=== PATIENT | female | born 1965 | race Two or more races ===

== ENCOUNTER → 2018-05-07 | Outpatient (REF) | payer OTHER | LOC: M LAB REF 17:00 | DX: E03.9 Hypothyroidism, unspecified (principal) | CPT/HCPCS: 84443 ==

== ENCOUNTER → 2018-06-11 | Outpatient (CLI) | payer OTHER | LOC: M RAD 11:47 | DX: R92.8 Other abnormal and inconclusive findings on diagnostic imaging of breast (principal) | CPT/HCPCS: 77066 ==

== ENCOUNTER → 2019-03-15 | Outpatient (REF) | payer OTHER ==
[2019-03-15 18:26] LABS: BASO % 0.8 % (0.0-1.0); EOS # 0.1 10^3/uL (0.0-0.50); EOS % 2.2 % (0.0-3.0); HEMOGLOBIN 13.9 g/dl (12.0-15.5); LYMPH # 1.9 10^3/uL (1.5-4.5); LYMPH % 38.6 % (24.0-44.0); MEAN CORPUSCULAR HGB CONC 33.1 g/dl (32.0-36.5); MEAN CORPUSCULAR VOLUME 93.8 fl (80.0-96.0); MONO # 0.2 10^3/uL (0.0-0.8); MONO % 4.6 % (0.0-5.0); NEUTROPHILS # 2.7 10^3/uL (1.8-7.7); NEUTROPHILS % 53.6 % (36.0-66.0); PLATELET COUNT, AUTOMATED 180 10^3/uL (150-450); RED BLOOD COUNT 4.48 10^6/uL (4.00-5.40)
[2019-03-15 18:43] LABS: ALBUMIN 3.8 GM/DL (3.2-5.2); ALT/SGPT 16 U/L (12-78); BILIRUBIN,TOTAL 0.3 MG/DL (0.2-1.0); BLOOD UREA NITROGEN 16 MG/DL (7-18); CALCIUM LEVEL 8.6 MG/DL (8.5-10.1); CARBON DIOXIDE LEVEL 32 MEQ/L (21-32); CHLORIDE LEVEL 110 MEQ/L (98-107); CHOLESTEROL LEVEL 177 MG/DL (<200); CREATININE FOR GFR 0.71 MG/DL (0.55-1.30); FREE T4 0.91 NG/DL (0.76-1.46); GLOMERULAR FILTRATION RATE > 60.0 (>51); GLUCOSE, FASTING 86 MG/DL (70-100); HDL CHOLESTEROL 56 MG/DL (>40); LDL CHOLESTEROL 105 MG/DL (<100); NON-HDL-C 121 MG/DL; POTASSIUM SERUM 4.1 MEQ/L (3.5-5.1); SODIUM LEVEL 144 MEQ/L (136-145); TOTAL PROTEIN 7.1 GM/DL (6.4-8.2); TRIGLYCERIDES LEVEL 81 MG/DL (<150)
[2019-03-15 18:46] LABS: APPEARANCE, URINE CLEAR (CLEAR); BACTERIA, URINE AUTO 1+ (NEGATIVE); BILIRUBIN, URINE AUTO NEGATIVE (NEGATIVE); BLOOD, URINE BLOOD 3+ (NEGATIVE); COLOR, URINE YELLOW (YELLOW); GLUCOSE, URINE (UA) AUTO NEGATIVE (NEGATIVE); KETONE, URINE AUTO NEGATIVE (NEGATIVE); LEUKOCYTE ESTERASE, URINE AUTO 1+ (NEGATIVE); MUCUS, URINE SMALL (NEGATIVE); NITRITE, URINE AUTO NEGATIVE (NEGATIVE); PROTEIN, URINE AUTO NEGATIVE (NEGATIVE); RBC, URINE AUTO 2 /HPF (0-3); SPECIFIC GRAVITY URINE AUTO 1.011 (1.002-1.035); SQUAMOUS EPITHELIAL CELL UR AU 4 /HPF (0-6); UROBILINOGEN, URINE AUTO 0.2 mg/dL (0.0-2.0); WBC, URINE AUTO 27 /HPF (0-3)
[2019-03-15 18:52] LABS: HEMOGLOBIN A1c 5.2 %
[2019-03-19 00:06] LABS: Lyme Disease IgG/IgM Antibodie <0.91 ISR (0.00-0.90); Lyme Disease IgM Ab Quantitati <0.80 index (0.00-0.79)
== END ==
LOC: M LAB REF 16:45
PROVIDERS: ATTEND Family Medicine
DX: Z13.228 Encounter for screening for other metabolic disorders (principal)

== ENCOUNTER → 2019-04-10 | Outpatient (CLI) | payer OTHER ==
[~2019-04-10] MED LIST: PROHANCE 279.3MG/ML 15ML VIAL (A9576) As Ordered ONE
--- NOTE | 2019-04-10 12:31 | REP ---
MRI BILATERAL BREASTS WITH AND WITHOUT CONTRAST: No family history of breast cancer. Possible nodule right breast mammogram 05/31/2018. TECHNIQUE: Multiple sequences are obtained in the axial, coronal and sagittal planes prior to and following the intravenous administration of 10.8 mL ProHance. Images are evaluated in the [employer] software including dynamic post-IV gadolinium axial T1 fat sat images, CAD imaging, color overlay imaging and MIP reconstruction images. There is mild to moderate fibroglandular tissue bilaterally. Mild background parenchymal enhancement is seen bilaterally. No suspicious enhancing mass is seen. No morphologic abnormality is seen. No axillary adenopathy is seen. There are several subcentimeter cysts in each breast. IMPRESSION: BIRADS category 2 benign bilateral breast MRI. Multiple subcentimeter cysts seen in each breast. No suspicious mass or morphologic abnormality. Electronically Signed by Mateo Dean MD 04/12/2019 12:29 P
== END ==
LOC: M RAD 08:35
PROVIDERS: ATTEND Family Medicine
DX: N60.19 Diffuse cystic mastopathy of unspecified breast (principal)
CPT/HCPCS: A9576; C8908

== ENCOUNTER → 2019-04-26 | Outpatient (REF) | payer OTHER ==
[2019-05-02 14:08] LABS: HPV HYBRID CAPTURE II Negative (Negative)
== END ==
LOC: M LAB REF 16:09
PROVIDERS: ATTEND Family Medicine
DX: Z12.4 Encounter for screening for malignant neoplasm of cervix (principal)

== ENCOUNTER → 2019-04-30 | Outpatient (CLI) | payer OTHER ==
--- NOTE | 2019-04-30 08:04 | REP ---
Clinical: Lung screening. History smoking. Comparison: None Technique: Axial low-dose noncontrast images from the thoracic inlet to the upper abdomen using lung screening technique. Findings: The lung gutiérrez are well-aerated. No consolidation, significant nodule or mass lesion is appreciated. No pleural effusion/reaction or pneumothorax. Tracheobronchial tree is patent. Mediastinum demonstrates mild atherosclerotic changes of the coronary arteries without cardiomegaly. Impression: Lung-RADS category I. No nodule or suspicious abnormality. Management recommendations include annual low-dose CT evaluation. Electronically Signed by Harjeet Mcbride MD 04/30/2019 07:56 A
== END ==
LOC: M RAD 07:05
PROVIDERS: ATTEND Family Medicine
DX: Z12.2 Encounter for screening for malignant neoplasm of respiratory organs (principal)

== ENCOUNTER → 2019-06-26 | Outpatient (CLI) | payer OTHER ==
[~2019-06-26] MED LIST changes: +KLON1TAB PO; +LEVO200T4 PO; +LEXA1TAB2 PO; -PROHANCE 279.3MG/ML 15ML VIAL (A9576) As Ordered ONE; +WELLTAB38 PO
[2019-06-28 00:08] LABS: TISSUE TRANSGLUTAMINASE IgA <2 U/mL (0-3)
[2019-06-28 08:16] LABS: IGASUB3 70.7 mg/dL (13.4-97.9); IgA SERUM (part of Subclasses) 158 mg/dL (87-352)
== END ==
LOC: M LAB 09:24
PROVIDERS: ATTEND Internal Medicine Gastroenterology
DX: K21.9 Gastro-esophageal reflux disease without esophagitis (principal)

== ENCOUNTER → 2019-08-01 | Outpatient (REF) | payer OTHER | LOC: M LAB REF 12:41 | PROVIDERS: ATTEND Internal Medicine Gastroenterology | DX: K21.9 Gastro-esophageal reflux disease without esophagitis (principal) ==

== ENCOUNTER 2019-08-08 09:25 | Day surgery (SDC) | payer OTHER ==
[~2019-08-08] VITALS: Ht 121.9 cm; Wt 56.7 kg
[~2019-08-08 09:25] MED LIST changes: +NS 1,000 ML IV ONE
[2019-08-08] MEDS ORDERED: LIDOCAINE 2% INJ 100 MG/5 ML SDV (FOR ANES.) As Ordered ONE (09:41)
[2019-08-08] MEDS ORDERED: PROPOFOL 500 MG/50 ML VIAL As Ordered ONE (09:41)
[2019-08-08] MEDS ORDERED: fentaNYL 100 MCG/2 ML INJECTION (J3010) As Ordered ONE (09:42)
[2019-08-08] MEDS ORDERED: ePHEDrine SULFATE 25 MG/5 ML(5MG/ML) SYRINGE As Ordered ONE (12:04)
--- NOTE | 2019-08-08 12:19 | ROOR ---
Patient Name: Celia Morataya Procedure Date: 08/08/2019 11:39 AM Date of : 1965 Age: 53 Room: [facility] Gender: Female Note Status: Finalized Procedure: Upper GI endoscopy Indications: Epigastric abdominal pain, Dysphagia Providers: Mainor Haley MD Referring MD: Danisha NICHOLSON NP Requesting Provider: Medicines: Monitored Anesthesia Care Complications: No immediate complications. Procedure: Pre-Anesthesia Assessment: - Prior to the procedure, a History and Physical was performed, and patient medications and allergies were reviewed. The patient is competent. The risks and benefits of the procedure and the sedation options and risks were discussed with the patient. All questions were answered and informed consent was obtained. Patient identification and proposed procedure were verified by the physician, the nurse and the anesthesiologist in the procedure room. Mental Status Examination: alert and oriented. Airway Examination: normal oropharyngeal airway and neck mobility. Respiratory Examination: clear to auscultation. CV Examination: normal. Prophylactic Antibiotics: The patient does not require prophylactic antibiotics. Prior Anticoagulants: The patient has taken no previous anticoagulant or antiplatelet agents. ASA Grade Assessment: II - A patient with mild systemic disease. After reviewing the risks and benefits, the patient was deemed in satisfactory condition to undergo the procedure. The anesthesia plan was to use monitored anesthesia care (MAC). Immediately prior to administration of medications, the patient was re-assessed for adequacy to receive sedatives. The heart rate, respiratory rate, oxygen saturations, blood pressure, adequacy of pulmonary ventilation, and response to care were monitored throughout the procedure. The physical status of the patient was re-assessed after the procedure. The Endoscope was introduced through the mouth, and advanced to the second part of duodenum. The upper GI endoscopy was accomplished without difficulty. The patient tolerated the procedure well. Findings: Mucosal changes including white plaques, circumferential folds and crepe paper esophagus were found in the middle third of the esophagus and in the lower third of the esophagus. Biopsies were obtained from the proximal and distal esophagus with cold forceps for histology of suspected eosinophilic esophagitis. Verification of patient identification for the specimen was done by the physician and nurse using the patient's name, date and medical record number. Estimated blood loss was minimal. Scattered mild inflammation characterized by erythema and granularity was found in the gastric antrum. Biopsies were taken with a cold forceps for Helicobacter pylori testing. The duodenal bulb and second portion of the duodenum were normal. Biopsies for histology were taken with a cold forceps for evaluation of celiac disease. Impression: - Esophageal mucosal changes suspicious for eosinophilic esophagitis. Biopsied. - Gastritis. Biopsied. - Normal duodenal bulb and second portion of the duodenum. Biopsied. Recommendation: - Patient has a contact number available for emergencies. The signs and symptoms of potential delayed complications were discussed with the patient. Return to normal activities tomorrow. Written discharge instructions were provided to the patient. - High fiber diet. - Continue present medications. - Await pathology results. - Telephone GI clinic for pathology results in 2 weeks. - Return to primary care physician. Mainor Haley MD Mainor Haley MD 08/08/2019 12:18:38 PM Electronically signed by Mainor Haley MD Number of Addenda: 0 Note Initiated On: 08/08/2019 11:39 AM Estimated Blood Loss: Estimated blood loss was minimal.
[2019-08-08 12:27] VITALS: BP 122/61
--- NOTE | 2019-08-08 12:34 | ROOR ---
Patient Name: Celia Morataya Procedure Date: 08/08/2019 11:40 AM Date of : 1965 Age: 53 Room: [facility] Gender: Female Note Status: Finalized Procedure: Colonoscopy Indications: Chronic diarrhea Providers: Mainor Haley MD Referring MD: Danisha NICHOLSON NP Requesting Provider: Medicines: Monitored Anesthesia Care Complications: No immediate complications. Procedure: Pre-Anesthesia Assessment: - Prior to the procedure, a History and Physical was performed, and patient medications and allergies were reviewed. The patient is competent. The risks and benefits of the procedure and the sedation options and risks were discussed with the patient. All questions were answered and informed consent was obtained. Patient identification and proposed procedure were verified by the physician, the nurse and the anesthesiologist in the procedure room. Mental Status Examination: alert and oriented. Airway Examination: normal oropharyngeal airway and neck mobility. Respiratory Examination: clear to auscultation. CV Examination: normal. Prophylactic Antibiotics: The patient does not require prophylactic antibiotics. Prior Anticoagulants: The patient has taken no previous anticoagulant or antiplatelet agents. ASA Grade Assessment: II - A patient with mild systemic disease. After reviewing the risks and benefits, the patient was deemed in satisfactory condition to undergo the procedure. The anesthesia plan was to use monitored anesthesia care (MAC). Immediately prior to administration of medications, the patient was re-assessed for adequacy to receive sedatives. The heart rate, respiratory rate, oxygen saturations, blood pressure, adequacy of pulmonary ventilation, and response to care were monitored throughout the procedure. The physical status of the patient was re-assessed after the procedure. The Colonoscope was introduced through the anus and advanced to the terminal ileum, with identification of the appendiceal orifice and IC valve. The colonoscopy was performed without difficulty. The patient tolerated the procedure well. The quality of the bowel preparation was good. The terminal ileum, ileocecal valve, appendiceal orifice, and rectum were photographed. Scope insertion time was 2 minutes. Scope withdrawal time was 8 minutes. The total duration of the procedure was 11 minutes. Findings: The perianal and digital rectal examinations were normal. The terminal ileum appeared normal. Non-bleeding external and internal hemorrhoids were found during endoscopy. The hemorrhoids were small. Normal mucosa was found in the entire colon. Biopsies for histology were taken with a cold forceps from the right colon, left colon, transverse colon and rectosigmoid colon for evaluation of microscopic colitis. Verification of patient identification for the specimen was done by the physician and nurse using the patient's name, date and medical record number. Estimated blood loss was minimal. Retroflexion in the rectum was not performed due to anatomy. No other significant abnormalities were identified in a careful examination of the remainder of the colon. Impression: - The examined portion of the ileum was normal. - Non-bleeding external and internal hemorrhoids. - Normal mucosa in the entire examined colon. Biopsied. Recommendation: - Patient has a contact number available for emergencies. The signs and symptoms of potential delayed complications were discussed with the patient. Return to normal activities tomorrow. Written discharge instructions were provided to the patient. - High fiber diet. - Continue present medications. - Await pathology results. - Repeat colonoscopy in 5 years for screening purposes. - Telephone GI clinic for pathology results in 2 weeks. Mainor Haley MD Mainor Haley MD 08/08/2019 12:34:30 PM Electronically signed by Mainor Haley MD Number of Addenda: 0 Note Initiated On: 08/08/2019 11:40 AM Estimated Blood Loss: Estimated blood loss was minimal.
== END 2019-08-08 13:05 | disposition home or self-care (01) ==
LOC: M OPP 09:25
PROVIDERS: ATTEND Internal Medicine Gastroenterology
DX: R19.7 Diarrhea, unspecified (principal); K64.8 Other hemorrhoids; R10.13 Epigastric pain; R13.10 Dysphagia, unspecified; K22.8 Other specified diseases of esophagus; K29.70 Gastritis, unspecified, without bleeding; E03.9 Hypothyroidism, unspecified; F41.9 Anxiety disorder, unspecified; F32.9 Major depressive disorder, single episode, unspecified; Z78.0 Asymptomatic menopausal state; R06.83 Snoring; Z88.8 Allergy status to other drugs, medicaments and biological substances; Z79.899 Other long term (current) drug therapy
CPT/HCPCS: 43239; 45380; 88305; J3010

== ENCOUNTER → 2019-12-12 | Outpatient (REF) | payer OTHER, MEDICAID ==
[~2019-12-12] MED LIST changes: -NS 1,000 ML IV ONE
[2019-12-12 13:54] LABS: BASO # 0.1 10^3/uL (0.0-0.2); BASO % 1.1 % (0.0-1.0); EOS # 0.2 10^3/uL (0.0-0.5); HEMATOCRIT 40.5 % (36.0-47.0); HEMOGLOBIN 13.5 g/dl (12.0-15.5); LYMPH % 27.5 % (24.0-44.0); MEAN CORPUSCULAR HEMOGLOBIN 29.9 pg (27.0-33.0); MEAN CORPUSCULAR HGB CONC 33.3 g/dl (32.0-36.5); MEAN CORPUSCULAR VOLUME 89.8 fl (80.0-96.0); MONO # 0.5 10^3/uL (0.0-0.8); MONO % 6.4 % (0.0-5.0); NEUTROPHILS # 4.5 10^3/uL (1.5-8.5); NEUTROPHILS % 61.7 % (36.0-66.0); PLATELET COUNT, AUTOMATED 251 10^3/uL (150-450); RED BLOOD COUNT 4.51 10^6/uL (4.00-5.40); WHITE BLOOD COUNT 7.3 10^3/uL (4.0-10.0)
[2019-12-12 14:04] LABS: ALBUMIN 3.5 GM/DL (3.2-5.2); ALT/SGPT 34 U/L (12-78); BILIRUBIN,TOTAL 0.4 MG/DL (0.2-1.0); BLOOD UREA NITROGEN 16 MG/DL (7-18); CALCIUM LEVEL 8.9 MG/DL (8.5-10.1); CARBON DIOXIDE LEVEL 28 MEQ/L (21-32); CHLORIDE LEVEL 110 MEQ/L (98-107); CHOLESTEROL LEVEL 184 MG/DL (<200); CHOLESTEROL RISK RATIO 3.345 (<5); CREATININE FOR GFR 0.75 MG/DL (0.55-1.30); GLOMERULAR FILTRATION RATE > 60.0 (>51); GLUCOSE, FASTING 102 MG/DL (70-100); HDL CHOLESTEROL 55 MG/DL (>40); LDL CHOLESTEROL 110 MG/DL (<100); NON-HDL-C 129 MG/DL; POTASSIUM SERUM 3.9 MEQ/L (3.5-5.1); SODIUM LEVEL 142 MEQ/L (136-145); THYROID STIMULATING HORMONE 0.009 uIU/ML (0.358-3.740); TOTAL PROTEIN 6.7 GM/DL (6.4-8.2); TRIGLYCERIDES LEVEL 94 MG/DL (<150)
[2019-12-12 15:14] LABS: HEMOGLOBIN A1c 5.6 %
== END ==
LOC: M LAB REF 12:30
PROVIDERS: ATTEND Family Medicine
DX: Z00.01 Encounter for general adult medical examination with abnormal findings (principal)

== ENCOUNTER → 2020-07-03 | Outpatient (REF) | payer OTHER, MEDICAID ==
[2020-07-03 13:36] LABS: ALBUMIN 3.6 GM/DL (3.2-5.2); ALT/SGPT 49 U/L (12-78); BILIRUBIN,TOTAL 0.4 MG/DL (0.2-1.0); BLOOD UREA NITROGEN 16 MG/DL (7-18); CALCIUM LEVEL 9.4 MG/DL (8.5-10.1); CARBON DIOXIDE LEVEL 32 MEQ/L (21-32); CHLORIDE LEVEL 107 MEQ/L (98-107); CHOLESTEROL LEVEL 183 MG/DL (<200); CHOLESTEROL RISK RATIO 3.588 (<5); CREATININE FOR GFR 0.77 MG/DL (0.55-1.30); GLOMERULAR FILTRATION RATE > 60.0 (>51); GLUCOSE, FASTING 106 MG/DL (70-100); HDL CHOLESTEROL 51 MG/DL (>40); LDL CHOLESTEROL 106 MG/DL (<100); NON-HDL-C 132 MG/DL; POTASSIUM SERUM 4.6 MEQ/L (3.5-5.1); SODIUM LEVEL 144 MEQ/L (136-145); THYROID STIMULATING HORMONE < 0.005 uIU/ML (0.358-3.740); TOTAL PROTEIN 7.1 GM/DL (6.4-8.2); TRIGLYCERIDES LEVEL 129 MG/DL (<150)
[2020-07-03 13:47] LABS: HEMOGLOBIN A1c 5.4 %
== END ==
LOC: M LAB REF 11:28
PROVIDERS: ATTEND Family Medicine Addiction Medicine
DX: L84 Corns and callosities (principal); E03.9 Hypothyroidism, unspecified

== ENCOUNTER → 2020-10-09 | Outpatient (REF) | payer OTHER, MEDICAID ==
[2020-10-09 18:00] LABS: ALBUMIN 3.8 GM/DL (3.2-5.2); ALT/SGPT 56 U/L (12-78); BILIRUBIN,TOTAL 0.4 MG/DL (0.2-1.0); BLOOD UREA NITROGEN 14 MG/DL (7-18); CALCIUM LEVEL 9.6 MG/DL (8.5-10.1); CARBON DIOXIDE LEVEL 32 MEQ/L (21-32); CHLORIDE LEVEL 107 MEQ/L (98-107); CHOLESTEROL LEVEL 190 MG/DL (<200); CHOLESTEROL RISK RATIO 3.333 (<5); CREATININE FOR GFR 0.82 MG/DL (0.55-1.30); GLOMERULAR FILTRATION RATE > 60.0 (>51); GLUCOSE, FASTING 96 MG/DL (70-100); HDL CHOLESTEROL 57 MG/DL (>40); LDL CHOLESTEROL 119 MG/DL (<100); NON-HDL-C 133 MG/DL; POTASSIUM SERUM 4.6 MEQ/L (3.5-5.1); SODIUM LEVEL 143 MEQ/L (136-145); THYROID STIMULATING HORMONE 0.006 uIU/ML (0.358-3.740); TOTAL PROTEIN 6.9 GM/DL (6.4-8.2); TRIGLYCERIDES LEVEL 70 MG/DL (<150)
== END ==
LOC: M LAB REF 16:41
PROVIDERS: ATTEND Family Medicine Addiction Medicine
DX: E03.9 Hypothyroidism, unspecified (principal)

== ENCOUNTER → 2020-11-23 | Outpatient (REF) | payer OTHER, MEDICAID | LOC: M LAB REF 13:30 | PROVIDERS: ATTEND Physician Assistant | DX: E03.9 Hypothyroidism, unspecified (principal) ==

== ENCOUNTER → 2020-12-01 | Outpatient (CLI) | payer OTHER ==
--- NOTE | 2020-12-01 14:51 | REP ---
INDICATION: POST MENOPAUSAL BLEEDING COMPARISON: None. TECHNIQUE: Transvaginal pelvic ultrasound with color Doppler evaluation of the ovaries. FINDINGS: Bladder is collapsed. Normal retroverted uterus measures 5.1 x 4.1 x 4.2 cm. The endometrial complex measures 5.7 mm thickness. No discrete uterine or endometrial abnormalities are appreciated. Bilateral ovaries are normal in vascularity without evidence for torsion. Right ovary measures 2.5 x 1.3 x 2.6 cm and includes 1.6 cm complex hypoechoic structure which may represent cyst and 1.8 cm complex anechoic adnexal lesion possibly complex cyst; R I = 0.59. Left ovary measures 1.7 x 1.6 x 1.5 cm; R I = 0.63. IMPRESSION: 1. Retroverted uterus. No discrete uterine or endometrial abnormality identified. 2. Somewhat complex hypoechoic structures of the right ovary/adnexa. Possibly representing benign/physiologic cysts. No prior examination available for comparison. <Electronically signed by Harjeet Mcbride > 12/01/20 [id number]
== END ==
LOC: M RAD 14:03
PROVIDERS: ATTEND Physician Assistant
DX: N95.0 Postmenopausal bleeding (principal)

== ENCOUNTER → 2020-12-14 | Outpatient (REF) | payer OTHER | LOC: M LAB REF 12:45 | PROVIDERS: ATTEND Physician Assistant | DX: Z01.419 Encounter for gynecological examination (general) (routine) without abnormal findings (principal) ==

== ENCOUNTER → 2020-12-28 | Outpatient (REF) | payer OTHER | LOC: M LAB REF 17:07 | PROVIDERS: ATTEND Physician Assistant | DX: E03.9 Hypothyroidism, unspecified (principal) ==

== ENCOUNTER → 2021-02-01 | Outpatient (CLI) | payer OTHER ==
--- NOTE | 2021-02-01 23:04 | REP ---
INDICATION: NICOTINE DEPENENCE COMPARISON: 04/30/2019 TECHNIQUE: Axial noncontrast images from the thoracic inlet to the upper abdomen using low-dose lung screening technique (LDCT). FINDINGS: Bilateral lung gutiérrez are relatively symmetric and essentially clear. No acute consolidation, suspicious nodule, or mass lesion. No effusion. No pneumothorax. IMPRESSION: Lung-RADS category 1. No suspicious nodule or mass. Management recommendations include annual low-dose CT surveillance. <Electronically signed by Harjeet Mcbride > 02/01/21 [id number]
== END ==
LOC: M RAD 13:29
PROVIDERS: ATTEND Physician Assistant
DX: Z12.2 Encounter for screening for malignant neoplasm of respiratory organs (principal); F17.210 Nicotine dependence, cigarettes, uncomplicated

== ENCOUNTER → 2021-02-05 | Outpatient (CLI) | payer OTHER ==
--- NOTE | 2021-02-05 16:43 | REP ---
INDICATION: N95.0 POSTMENOPAUSAL BLEEDING. COMPARISON: Comparison pelvic sonography December 01, 2020.. TECHNIQUE: Transabdominal and transvaginal scanning were performed. FINDINGS: Uterine dimensions are normal at 5.9 x 3.1 x 3.5 cm. Endometrial echo is 0.5 cm thick and centrally placed. No free fluid is seen in the cul-de-sac. Visualized bladder ruffin are smooth. Uterus is retroverted. Exam quality is inhibited by patient body habitus. The right ovary has dimensions of 2.7 x 0.9 x 2.9 cm. there is a 1.6 x 1.3 x 1.2 cm cyst in the right ovary. A 0.7 cm shadowing calculus is seen in the region the right adnexa. Doppler flow is present in the right ovary with resistive index 0.53.. The left ovary dimensions are normal as well at 1.6 x 1.8 x 1.8 cm. It's Doppler flow was normal with resistive index of 0.59. IMPRESSION: Retroverted uterus. 5 mm endometrium. 1.6 cm simple cyst right ovary. Otherwise negative.. <Electronically signed by Chay Mclean > 02/05/21 [id number]
== END ==
LOC: M WHC 12:55
PROVIDERS: ATTEND Obstetrics & Gynecology
DX: N95.0 Postmenopausal bleeding (principal)

== ENCOUNTER → 2021-03-31 | Outpatient (CLI) | payer OTHER ==
[~2021-03-31] MED LIST changes: +CLOB0.0548; +HYDR-3363; +LEVO125T4
[2021-03-31 11:39] LABS: BASO # 0.1 10^3/uL (0.0-0.2); BASO % 0.9 % (0.0-1.0); EOS # 0.2 10^3/uL (0.0-0.5); EOS % 2.6 % (0.0-3.0); HEMATOCRIT 42.1 % (36.0-47.0); HEMOGLOBIN 13.7 g/dl (12.0-15.5); LYMPH # 2.6 10^3/uL (1.5-5.0); LYMPH % 33.9 % (24.0-44.0); MEAN CORPUSCULAR HEMOGLOBIN 29.1 pg (27.0-33.0); MEAN CORPUSCULAR HGB CONC 32.5 g/dl (32.0-36.5); MEAN CORPUSCULAR VOLUME 89.6 fl (80.0-96.0); MONO # 0.5 10^3/uL (0.0-0.8); MONO % 6.5 % (2.0-8.0); NEUTROPHILS # 4.3 10^3/uL (1.5-8.5); NEUTROPHILS % 55.7 % (36.0-66.0); PLATELET COUNT, AUTOMATED 269 10^3/uL (150-450); WHITE BLOOD COUNT 7.6 10^3/uL (4.0-10.0)
[2021-03-31 12:10] LABS: ALBUMIN 3.7 GM/DL (3.2-5.2); ALT/SGPT 54 U/L (12-78); BILIRUBIN,TOTAL 0.6 MG/DL (0.2-1.0); BLOOD UREA NITROGEN 16 MG/DL (7-18); CARBON DIOXIDE LEVEL 31 MEQ/L (21-32); CHLORIDE LEVEL 108 MEQ/L (98-107); CREATININE FOR GFR 0.77 MG/DL (0.55-1.30); GLOMERULAR FILTRATION RATE > 60.0 (>51); GLUCOSE, FASTING 91 MG/DL (70-100); POTASSIUM SERUM 4.1 MEQ/L (3.5-5.1); SODIUM LEVEL 143 MEQ/L (136-145); THYROID STIMULATING HORMONE 0.008 uIU/ML (0.358-3.740); TOTAL PROTEIN 6.9 GM/DL (6.4-8.2)
--- NOTE | 2021-04-01 07:28 | ECGEPIP ---
[facility] Test Date: 2021-03-31 Pat Name: FRANKI COCHRAN Department: Room: - Gender: Female Personal Attendant: AGUILAR : 1965 Requested By: Varsha De Los Santos Order Number: [id number] Reading MD: Sukhdev Dodson Measurements Intervals [place] Rate: 55 P: 51 IA: 144 QRS: 15 QRSD: 74 T: 26 QT: 448 QTc: 428 Interpretive Statements Sinus bradycardia otherwise normal Electronically Signed on 04-01-2021 7:28:08 EDT by Sukhdev Dodson
== END ==
LOC: M LAB 10:47
PROVIDERS: ATTEND Physician Assistant
DX: Z01.818 Encounter for other preprocedural examination (principal)

== ENCOUNTER → 2021-04-09 | Outpatient (CLI) | payer OTHER | LOC: M LABSMTC 10:38 | PROVIDERS: ATTEND Anesthesiology | DX: Z01.818 Encounter for other preprocedural examination (principal); Z11.52 Encounter for screening for COVID-19 ==

== ENCOUNTER 2021-04-14 11:13 | Day surgery (SDC) | payer OTHER ==
[~2021-04-14] VITALS: Ht 149.9 cm; Wt 71.6 kg
[2021-04-14 11:48] LABS: HEMATOCRIT 41.9 % (36.0-47.0); HEMOGLOBIN 14.1 g/dl (12.0-15.5); MEAN CORPUSCULAR HEMOGLOBIN 29.6 pg (27.0-33.0); MEAN CORPUSCULAR HGB CONC 33.7 g/dl (32.0-36.5); MEAN CORPUSCULAR VOLUME 87.8 fl (80.0-96.0); PLATELET COUNT, AUTOMATED 250 10^3/uL (150-450); RED BLOOD COUNT 4.77 10^6/uL (4.00-5.40); WHITE BLOOD COUNT 7.6 10^3/uL (4.0-10.0)
[2021-04-14] MEDS: IODINE STRONG SOLN 15 ML BTL As Ordered ONE (12:27)
[2021-04-14] MEDS: LR 1,000 ML IV ONE (12:39)
[2021-04-14] MEDS ORDERED: LIDOCAINE 2% 100MG/5ML SDV (FOR ANES.) As Ordered ONE (13:41)
[2021-04-14] MEDS ORDERED: ONDANSETRON 4MG/2ML VIAL As Ordered ONE (13:41)
[2021-04-14] MEDS ORDERED: MIDAZOLAM INJ 2MG/2ML VIAL (J2250 PER 1MG) As Ordered ONE (13:41)
[2021-04-14] MEDS ORDERED: propofoL 200 MG/20 ML VIAL As Ordered ONE (13:41)
[2021-04-14] MEDS ORDERED: dexameTHASONE 4 MG/ML 1ML VIAL (J1100 PER 1MG) As Ordered ONE (13:41)
[2021-04-14] MEDS ORDERED: fentaNYL 100 MCG/2 ML INJECTION (J3010) As Ordered ONE (13:41)
--- NOTE | 2021-04-14 13:41 | ROOPDOC ---
[facility] Report Of Operation Report of Operation DATE OF PROCEDURE: 04/14/21 PREPROCEDURE DIAGNOSES: 1. Postmenopausal bleeding, possible endometrial polyp/mass 2. ASCUS Pap/HPV negative POSTPROCEDURE DIAGNOSES: Significant postmenopausal atrophic changes to vagina, cervix, and endometrial cavity (no mass present) PROCEDURE PERFORMED: 1. Hysteroscopy, Dilation and Curettage 2. Colposcopy with cervical biopsy and endocervical curettage. SURGEON: Oren Chong DO FACOG SHIPPING ORDER CLERK: none ANESTHESIA: General, LMA ESTIMATED BLOOD LOSS: Approximately 10 mL. COMPLICATIONS: none FINDINGS: No evidence of an intrauterine mass/polyp/fibroid (career representative images taken). Atrophic endometrial lining. No cervical mass/plaque. Atrophic changes noted after application of acetic acid and with colposcopic exam. SPECIMENS REMOVED: 1. endometrial curettings/biopsy. 2. Cervical biopsy at 12 o'clock SCJ 3. Endocervical curettage. DESCRIPTION OF PROCEDURE: The patient was taken to the operating room with an IV running. She placed in the dorsal supine position. General anesthesia was administered and the airway secured without any difficulty. She was placed in the high lithotomy position. She was prepared and draped in normal sterile fashion. A timeout was performed per protocol. The bladder was drained with an in and out sterile catheter. Sterile speculum was placed with good visualization of the cervix. The anterior lip of the cervix was grasped with a single-tooth tenaculum and downward traction was applied. Cervix was then sequentially dilated with Waylon dilators up to a #16. The uterus sounded to 6.5 cm. The hysteroscope was placed transcervically into the intrauterine cavity with findings noted above. Given lack of any significant endometrial mass, the hysteroscope was removed. Washing Machine Mechanic images were taken. Sharp curettage was performed throughout the intrauterine cavity with minimal tissue return. And endometrial Pipelle was also used to obtain endometrial tissue in 2 passes. Single-tooth tenaculum was removed. Acetic acid was applied to the cervix and vagina. Only significant atrophic changes to the cervix and vagina were noted. A mild aceto-white change was noted at 12 o'clock position cervical biopsy was performed with the Tischler forceps. An endocervical curettage was performed. All specimens were sent to pathology. Excellent hemostasis was noted after application of silver nitrate to the biopsy site.. All instruments were removed from the vagina. Counts were correct. Patient was taken to the PACU in good stable condition BREA CHONG DO Apr 14, 2021 13:41
[2021-04-14] MEDS ORDERED: fentaNYL 100 MCG/2 ML INJECTION (J3010) IV PRN (13:45)
[2021-04-14] MEDS ORDERED: HYDROMORPHONE HCL 0.5 MG/ 0.5 ML SYRINGE (J1170 PER 1) IV PRN (13:45)
[2021-04-14] MEDS ORDERED: ONDANSETRON 4MG/2ML VIAL IV PRN (13:45)
[2021-04-14] MEDS ORDERED: LR 1,000 ML IV SCH ×2 (13:45→14:10)
[2021-04-14 14:20] VITALS: BP 115/72
== END 2021-04-14 14:48 | disposition home or self-care (01) ==
LOC: M SDC 11:13
PROVIDERS: ATTEND Obstetrics & Gynecology
DX: N95.0 Postmenopausal bleeding (principal); R87.610 Atypical squamous cells of undetermined significance on cytologic smear of cervix (ASC-US); N88.8 Other specified noninflammatory disorders of cervix uteri; E03.9 Hypothyroidism, unspecified; E55.9 Vitamin D deficiency, unspecified; F32.9 Major depressive disorder, single episode, unspecified; F41.9 Anxiety disorder, unspecified; R06.83 Snoring; Z79.890 Hormone replacement therapy; Z79.899 Other long term (current) drug therapy; Z87.891 Personal history of nicotine dependence; Z88.5 Allergy status to narcotic agent; Z88.6 Allergy status to analgesic agent

== ENCOUNTER → 2021-05-19 | Outpatient (CLI) | payer OTHER ==
--- NOTE | 2021-05-19 15:00 | REP ---
INDICATION: N83.201 RT DOMINANT FOLLICLE MEASURING 1.6 CM COMPARISON: 02/05/2021 TECHNIQUE: Transvesical and transvaginal imaging FINDINGS: The uterus is unchanged in size, shape, position, and echo pattern measuring 6.4 x 3.1 x 3.8 cm. The endometrial echo complex is again seen to measure 8 mm and is unchanged. The right ovary measures 2.7 x 0.9 x 3 cm and is unchanged. Left ovary measures 1.7 x 0.9 x 2 cm and is unchanged. The RI is 0.5. Urinary bladder measures 8 x 4 x 7 cm. IMPRESSION: No significant change from the prior exam. Persistent dominant follicle right ovary as described above. Consider pelvic MRI before and after intravenous gadolinium if clinically relevant. <Electronically signed by Iker Wong > 05/19/21 [id number]
== END ==
LOC: M WHC 13:01
PROVIDERS: ATTEND Obstetrics & Gynecology
DX: N83.201 Unspecified ovarian cyst, right side (principal)

== ENCOUNTER → 2021-06-29 | Outpatient (CLI) | payer OTHER ==
[2021-06-29 14:06] LABS: FREE T4 1.24 NG/DL (0.76-1.46); THYROID STIMULATING HORMONE 0.156 uIU/ML (0.358-3.740)
[2021-06-29 14:07] LABS: THYROID PEROXIDASE ANTIBODY < 28.0 U/ML (<60.0)
== END ==
LOC: M PLALAB 11:44
PROVIDERS: ATTEND Nurse Practitioner Family
DX: E03.9 Hypothyroidism, unspecified (principal)

== ENCOUNTER → 2021-09-16 | Outpatient (CLI) | payer OTHER ==
[2021-09-16 14:10] LABS: FREE T4 0.98 NG/DL (0.76-1.46); THYROID STIMULATING HORMONE 2.8 uIU/ML (0.358-3.740)
== END ==
LOC: M PLALAB 11:01
PROVIDERS: ATTEND Nurse Practitioner Family
DX: E03.9 Hypothyroidism, unspecified (principal)

== ENCOUNTER → 2021-12-10 | Outpatient (CLI) | payer OTHER | LOC: M RAD 09:21 | PROVIDERS: ATTEND Physician Assistant | DX: M48.061 Spinal stenosis, lumbar region without neurogenic claudication (principal); M25.78 Osteophyte, vertebrae ==

== ENCOUNTER 2022-01-11 12:38 | Outpatient (RCR) | payer OTHER | END 2022-01-29 | LOC: M PT 12:38 | PROVIDERS: ATTEND Orthopaedic Surgery | DX: S39.012A Strain of muscle, fascia and tendon of lower back, initial encounter (principal); X58.XXXA Exposure to other specified factors, initial encounter; Y92.9 Unspecified place or not applicable ==

== ENCOUNTER 2022-05-31 09:16 | Inpatient (IN) | payer OTHER ==
[~2022-05-31] VITALS: Ht 149.9 cm; Wt 56.8 kg
[2022-05-31] MEDS ORDERED: ERGO500029 PO (09:25)
[2022-05-31 10:42] LABS: HEMATOCRIT 44.4 % (36.0-47.0); HEMOGLOBIN 14.8 g/dl (12.0-15.5); MEAN CORPUSCULAR HEMOGLOBIN 30.4 pg (27.0-33.0); MEAN CORPUSCULAR HGB CONC 33.3 g/dl (32.0-36.5); MEAN CORPUSCULAR VOLUME 91.2 fl (80.0-96.0); PLATELET COUNT, AUTOMATED 229 10^3/uL (150-450); RED BLOOD COUNT 4.87 10^6/uL (4.00-5.40); WHITE BLOOD COUNT 11.2 10^3/uL (4.0-10.0)
[2022-05-31 11:13] LABS: RSV AMPLIFICATION NEGATIVE (NEGATIVE)
[2022-05-31 11:22] LABS: ACETAMINOPHEN LEVEL < 2.0 UG/ML (10.0-30.0); ALBUMIN 4.2 GM/DL (3.2-5.2); ALT/SGPT 20 U/L (12-78); BILIRUBIN,DIRECT 0.2 MG/DL (0.0-0.2); BILIRUBIN,TOTAL 0.7 MG/DL (0.2-1.0); BLOOD UREA NITROGEN 11 MG/DL (7-18); CALCIUM LEVEL 9.3 MG/DL (8.5-10.1); CARBON DIOXIDE LEVEL 30 MEQ/L (21-32); CHLORIDE LEVEL 107 MEQ/L (98-107); CREATININE FOR GFR 0.88 MG/DL (0.55-1.30); ETHYL ALCOHOL (ETHANOL) 0.005 % (0.000-0.010); GLOMERULAR FILTRATION RATE > 60.0 (>51); GLUCOSE, FASTING 94 MG/DL (70-100); POTASSIUM SERUM 3.8 MEQ/L (3.5-5.1); SALICYLATE LEVEL 3.3 MG/DL (5.0-30.0); SODIUM LEVEL 140 MEQ/L (136-145); TOTAL PROTEIN 7.7 GM/DL (6.4-8.2)
[2022-05-31 12:04] LABS: AMPHETAMINES LEVEL URINE NEGATIVE (NEGATIVE); BARBITURATES URINE NEGATIVE (NEGATIVE); BENZODIAZEPINES URINE NEGATIVE (NEGATIVE); CANNABINOIDS URINE POSITIVE (NEGATIVE); COCAINE METABOLITE URINE NEGATIVE (NEGATIVE); METHADONE URINE NEGATIVE (NEGATIVE); OPIATES URINE NEGATIVE (NEGATIVE); PHENCYCLIDINE URINE NEGATIVE (NEGATIVE)
[2022-05-31] MEDS ORDERED: LORazepam 1 MG TAB PO ONE (15:45)
[2022-05-31] MEDS ORDERED: NICOTINE 21MG/24HR 1 EA TRANSDERMAL TD ONE (15:45)
[2022-05-31] MEDS ORDERED: LEVO75TA4 PO (16:54)
[2022-05-31] MEDS ORDERED: HOME MED LIST COMPLETE! XX SCH (16:55)
[2022-06-01] MEDS: LEVOTHYROXINE 75MCG TABLET (0.075MG) PO SCH (07:43)
[2022-06-01] MEDS ORDERED: LORazepam 1 MG TAB PO ONE (10:10)
[2022-06-01] MEDS ORDERED: ESTR0.1C5 VG (16:04)
[2022-06-01] MEDS ORDERED: NICOTINE 21MG/24HR 1 EA TRANSDERMAL TD ONE (20:10)
[2022-06-01] MEDS ORDERED: ESTRADIOL 0.01% TOP SCH ×2 (21:00)
[2022-06-01] MEDS ORDERED: ESCITALOPRAM OXALATE 10 MG TAB (LEXAPRO) PO SCH (21:00)
[2022-06-01] MEDS ORDERED: clonazePAM 1 MG TAB PO ONE (22:00)
[2022-06-02] MEDS: LEVOTHYROXINE 75MCG TABLET (0.075MG) PO SCH (06:00)
[2022-06-02] MEDS ORDERED: LEVOTHYROXINE 75MCG TABLET (0.075MG) PO SCH (06:00)
[2022-06-02] MEDS ORDERED: clonazePAM 1 MG TAB PO SCH (09:00)
[2022-06-02 12:17] LABS: RSV AMPLIFICATION NEGATIVE (NEGATIVE)
[2022-06-02] MEDS ORDERED: diphenhydrAMINE 25MG CAP PO PRN (13:10)
[2022-06-02] MEDS ORDERED: MOM 30ML SUSPENSION UDC PO PRN (13:10)
[2022-06-02] MEDS ORDERED: IBUPROFEN 400MG TAB PO PRN (13:10)
[2022-06-02] MEDS ORDERED: MAALOX 30 ML SUSP *UDC PO PRN (13:10)
[2022-06-02] MEDS ORDERED: traZODone 50 MG TAB PO PRN (13:10)
[2022-06-02] MEDS ORDERED: LORazepam 1 MG TAB PO PRN (13:10)
[2022-06-02 15:31] VITALS: BP 138/86
[2022-06-02] MEDS: NICOTINE 21MG/24HR 1 EA TRANSDERMAL TD SCH (15:48)
[2022-06-02] MEDS: ESCITALOPRAM OXALATE 10 MG TAB (LEXAPRO) PO SCH (20:44)
[2022-06-02] MEDS: clonazePAM 1 MG TAB PO SCH (20:44)
[2022-06-03] MEDS: LEVOTHYROXINE 75MCG TABLET (0.075MG) PO SCH (05:44)
[2022-06-03 06:28] VITALS: BP 143/79
[2022-06-03] MEDS: clonazePAM 1 MG TAB PO SCH ×2 (09:00→20:30)
[2022-06-03] MEDS: NICOTINE 21MG/24HR 1 EA TRANSDERMAL TD SCH (09:00)
[2022-06-03] MEDS ORDERED: ACETAMINOPHEN 325 MG TAB PO PRN (09:35)
[2022-06-03] MEDS: SIMETHICONE 80MG CHEW TAB PO PRN ×2 (10:04→16:45)
[2022-06-03] MEDS ORDERED: ENOXAPARIN 40MG/0.4ML SYRINGE (J1650 PER 10MG) SC ONE (15:00)
[2022-06-03 16:04] VITALS: BP 122/79
[2022-06-03] MEDS: ESCITALOPRAM OXALATE 10 MG TAB (LEXAPRO) PO SCH (20:30)
[2022-06-03] MEDS: ARIPiprazole 2 MG TAB PO SCH (20:30)
[2022-06-04] MEDS: LEVOTHYROXINE 75MCG TABLET (0.075MG) PO SCH (05:25)
[2022-06-04 06:14] VITALS: BP 135/65
[2022-06-04 07:05] LABS: CHOLESTEROL RISK RATIO 3.473 (<5)
[2022-06-04] MEDS: SIMETHICONE 80MG CHEW TAB PO PRN ×4 (08:49→22:39)
[2022-06-04] MEDS: NICOTINE 21MG/24HR 1 EA TRANSDERMAL TD SCH (08:49)
[2022-06-04] MEDS: clonazePAM 1 MG TAB PO SCH ×2 (08:49→21:37)
[2022-06-04] MEDS: ENOXAPARIN 40MG/0.4ML SYRINGE (J1650 PER 10MG) SC SCH (08:50)
[2022-06-04] MEDS: BACTRIM 160MG/800MG DS TAB PO SCH ×2 (11:38→21:37)
[2022-06-04 16:01] VITALS: BP 124/74
[2022-06-04] MEDS: traZODone 50 MG TAB PO PRN (21:37)
[2022-06-04] MEDS: ESCITALOPRAM OXALATE 10 MG TAB (LEXAPRO) PO SCH (21:37)
[2022-06-04] MEDS: ARIPiprazole 2 MG TAB PO SCH (21:37)
[2022-06-05] MEDS: LEVOTHYROXINE 75MCG TABLET (0.075MG) PO SCH (05:40)
[2022-06-05 06:12] VITALS: BP 119/77
[2022-06-05] MEDS: BACTRIM 160MG/800MG DS TAB PO SCH ×2 (08:56→21:21)
[2022-06-05] MEDS: SIMETHICONE 80MG CHEW TAB PO PRN ×2 (08:56→19:22)
[2022-06-05] MEDS: clonazePAM 1 MG TAB PO SCH ×2 (08:56→21:21)
[2022-06-05] MEDS: ENOXAPARIN 40MG/0.4ML SYRINGE (J1650 PER 10MG) SC SCH (08:57)
[2022-06-05] MEDS: NICOTINE 21MG/24HR 1 EA TRANSDERMAL TD SCH (08:57)
[2022-06-05 16:08] VITALS: BP 127/75
[2022-06-05] MEDS: ESCITALOPRAM OXALATE 10 MG TAB (LEXAPRO) PO SCH (21:22)
[2022-06-05] MEDS: traZODone 50 MG TAB PO PRN (21:22)
[2022-06-06] MEDS: LEVOTHYROXINE 75MCG TABLET (0.075MG) PO SCH (05:23)
[2022-06-06 06:03] VITALS: BP 115/78
[2022-06-06 06:56] LABS: HEMATOCRIT 43.7 % (36.0-47.0); HEMOGLOBIN 14.8 g/dl (12.0-15.5); MEAN CORPUSCULAR HGB CONC 33.9 g/dl (32.0-36.5); MEAN CORPUSCULAR VOLUME 91.6 fl (80.0-96.0); PLATELET COUNT, AUTOMATED 211 10^3/uL (150-450); RED BLOOD COUNT 4.77 10^6/uL (4.00-5.40); WHITE BLOOD COUNT 7.6 10^3/uL (4.0-10.0)
[2022-06-06] MEDS: ENOXAPARIN 40MG/0.4ML SYRINGE (J1650 PER 10MG) SC SCH (08:43)
[2022-06-06] MEDS: NICOTINE 21MG/24HR 1 EA TRANSDERMAL TD SCH (08:43)
[2022-06-06] MEDS: BACTRIM 160MG/800MG DS TAB PO SCH ×2 (08:43→20:21)
[2022-06-06] MEDS: clonazePAM 1 MG TAB PO SCH ×2 (08:43→20:21)
[2022-06-06] MEDS: SIMETHICONE 80MG CHEW TAB PO PRN ×3 (08:44→22:03)
[2022-06-06 18:06] VITALS: BP 144/79
[2022-06-06] MEDS: traZODone 50 MG TAB PO PRN (20:20)
[2022-06-06] MEDS: ESCITALOPRAM OXALATE 10 MG TAB (LEXAPRO) PO SCH (20:20)
[2022-06-07] MEDS: LEVOTHYROXINE 75MCG TABLET (0.075MG) PO SCH (05:32)
[2022-06-07 06:07] VITALS: BP 118/66
[2022-06-07] MEDS: NICOTINE 21MG/24HR 1 EA TRANSDERMAL TD SCH (08:48)
[2022-06-07] MEDS: clonazePAM 1 MG TAB PO SCH (08:49)
[2022-06-07] MEDS: ENOXAPARIN 40MG/0.4ML SYRINGE (J1650 PER 10MG) SC SCH (08:51)
[2022-06-07] MEDS ORDERED: VITAMIN D 50,000 UNITS CAPSULE (ERGOCALCIFEROL 1.25MG) PO SCH (09:00)
[2022-06-07] MEDS ORDERED: NICO21PAT TD (09:08)
[2022-06-07] MEDS ORDERED: ABIL1TAB11 PO (09:08)
[2022-06-07] MEDS ORDERED: SIME80TA16 PO (09:08)
[2022-06-07] MEDS ORDERED: LEXA1TAB2 PO (09:08)
[2022-06-07] MEDS ORDERED: LOVE1INJ SC (09:08)
[2022-06-07] MEDS ORDERED: TRAZ-252 PO (09:08)
[2022-06-07] MEDS: SIMETHICONE 80MG CHEW TAB PO PRN (10:44)
== END 2022-06-07 13:06 | disposition home or self-care (01) | DRG 751 ==
LOC: M ED 09:16 → M ED INP 06-02 13:09 → M PSY 06-02 14:22
PROVIDERS: ADMIT Student in an Organized Health Care Education/Training Program; ATTEND Student in an Organized Health Care Education/Training Program
DX: F33.3 Major depressive disorder, recurrent, severe with psychotic symptoms (principal); E55.9 Vitamin D deficiency, unspecified; Z88.5 Allergy status to narcotic agent; F43.10 Post-traumatic stress disorder, unspecified; Z79.899 Other long term (current) drug therapy; Z88.6 Allergy status to analgesic agent; E03.9 Hypothyroidism, unspecified; K21.9 Gastro-esophageal reflux disease without esophagitis; F17.210 Nicotine dependence, cigarettes, uncomplicated

== ENCOUNTER → 2022-06-21 | Outpatient (CLI) | payer OTHER ==
[~2022-06-21] MED LIST changes: +ABIL1TAB11 PO; +ERGO500029 PO; +ESTR0.1C5 VG; +LEVO75TA4 PO; +LOVE1INJ SC; +NICO21PAT TD; +SIME80TA16 PO; +TRAZ-252 PO
== END ==
LOC: M SOG 15:10
PROVIDERS: ATTEND Orthopaedic Surgery
DX: M54.2 Cervicalgia (principal)

== ENCOUNTER → 2022-07-15 | Outpatient (REF) | payer OTHER ==
[2022-07-15 16:56] LABS: GC DNA AMPLIFICATION NEGATIVE (NEGATIVE)
== END ==
LOC: M SFHCWAGY 15:08
PROVIDERS: ATTEND Obstetrics & Gynecology
DX: N89.8 Other specified noninflammatory disorders of vagina (principal)

== ENCOUNTER 2022-07-19 08:30 | Outpatient (RCR) | payer OTHER | END 2022-08-01 | LOC: M PT 08:30 | PROVIDERS: ATTEND Orthopaedic Surgery | DX: M47.812 Spondylosis without myelopathy or radiculopathy, cervical region (principal) ==

== ENCOUNTER 2022-08-12 07:25 | Outpatient (RCR) | payer OTHER | END 2022-08-31 | LOC: M PT 07:25 | PROVIDERS: ATTEND Orthopaedic Surgery | DX: M47.812 Spondylosis without myelopathy or radiculopathy, cervical region (principal); M47.16 Other spondylosis with myelopathy, lumbar region; M25.519 Pain in unspecified shoulder ==

== ENCOUNTER 2022-09-12 11:06 | Outpatient (RCR) | payer OTHER | END 2022-10-01 | LOC: M PT 11:06 | PROVIDERS: ATTEND Orthopaedic Surgery | DX: M47.812 Spondylosis without myelopathy or radiculopathy, cervical region (principal) ==

== ENCOUNTER → 2022-10-07 | Outpatient (REF) | payer OTHER | LOC: M LAB REF 16:10 | PROVIDERS: ATTEND Pediatrics | DX: E03.9 Hypothyroidism, unspecified (principal) ==

== ENCOUNTER → 2022-10-26 | Outpatient (CLI) | payer OTHER | LOC: M SOG 08:02 | PROVIDERS: ATTEND Orthopaedic Surgery | DX: M25.512 Pain in left shoulder (principal); M25.511 Pain in right shoulder ==

== ENCOUNTER → 2022-10-31 | Outpatient (CLI) | payer OTHER | LOC: M WHC 08:51 | PROVIDERS: ATTEND Pediatrics | DX: Z13.820 Encounter for screening for osteoporosis (principal); M85.851 Other specified disorders of bone density and structure, right thigh; M85.852 Other specified disorders of bone density and structure, left thigh ==

== ENCOUNTER → 2022-11-07 | Outpatient (CLI) | payer OTHER | LOC: M RAD 08:32 | PROVIDERS: ATTEND Pediatrics | DX: Z12.2 Encounter for screening for malignant neoplasm of respiratory organs (principal) ==

== ENCOUNTER → 2022-11-23 | Outpatient (REF) | payer OTHER | LOC: M LAB REF 09:09 | PROVIDERS: ATTEND Physician Assistant | DX: R19.7 Diarrhea, unspecified (principal) ==

== ENCOUNTER → 2022-12-21 | Outpatient (REF) | payer OTHER | LOC: M LAB REF 11:24 | PROVIDERS: ATTEND Nurse Practitioner Family | DX: R19.7 Diarrhea, unspecified (principal); K86.81 Exocrine pancreatic insufficiency ==

== ENCOUNTER → 2022-12-22 | Outpatient (CLI) | payer OTHER ==
[2022-12-22 11:54] LABS: BLOOD UREA NITROGEN 16 MG/DL (9-23); CREATININE FOR GFR 0.74 MG/DL (0.55-1.30); GLOMERULAR FILTRATION RATE > 60.0 (>51)
== END ==
LOC: M LAB 08:55
PROVIDERS: ATTEND Nurse Practitioner Family
DX: R19.7 Diarrhea, unspecified (principal); K86.81 Exocrine pancreatic insufficiency

== ENCOUNTER → 2023-01-24 | Outpatient (CLI) | payer OTHER ==
[~2023-01-24] MED LIST changes: +PROHANCE 279.3MG/ML 5ML VIAL ONE
== END ==
LOC: M PLAIMG 08:23
PROVIDERS: ATTEND Nurse Practitioner Family
DX: K86.81 Exocrine pancreatic insufficiency (principal); Z90.49 Acquired absence of other specified parts of digestive tract

== ENCOUNTER → 2023-02-28 | Outpatient (CLI) | payer OTHER ==
[~2023-02-28] MED LIST changes: +ESOM20CA25 PO; -PROHANCE 279.3MG/ML 5ML VIAL ONE
[2023-02-28 10:04] LABS: INR 0.8; PROTHROMBIN TIME 11.3 SECONDS (12.5-14.5)
[2023-02-28 10:21] LABS: ALBUMIN 3.9 G/DL (3.2-5.2); ALKALINE PHOSPHATASE 62 U/L (46-116); ALT/SGPT 16 U/L (7.0-40); AST/SGOT 19 U/L (<34); BILIRUBIN,DIRECT < 0.1 MG/DL (<0.4); BILIRUBIN,TOTAL 0.3 MG/DL (0.3-1.2); IRON (FE) 66 UG/DL (50-170); PERCENT SATURATION 19.6 % (13.2-45.0); TOTAL IRON BINDING CAPACITY 336 UG/DL (250-425); TOTAL PROTEIN 6.5 G/DL (5.7-8.2)
[2023-02-28 10:35] LABS: HEPATITIS B SURFACE ANTIGEN NEGATIVE (NEGATIVE)
[2023-02-28 10:56] LABS: HEPATITIS B CORE ANTIBODY IGM NEGATIVE (NEGATIVE)
[2023-02-28 10:57] LABS: HEPATITIS C VIRUS ABY INDEX 0.1 INDEX (<0.8)
[2023-03-04 03:07] LABS: ANTINUCLEAR ANTIBODIES DIRECT Negative (Negative)
== END ==
LOC: M LAB 09:12
PROVIDERS: ATTEND Internal Medicine Gastroenterology
DX: K76.0 Fatty (change of) liver, not elsewhere classified (principal)

== ENCOUNTER 2023-05-04 08:02 | Day surgery (SDC) | payer OTHER ==
[~2023-05-04] VITALS: Ht 149.9 cm; Wt 60.5 kg
[~2023-05-04 08:02] MED LIST changes: +ABIL10TA9 PO; +NS 1,000 ML IV ONE; +TRAZ-189 PO; +TRAZ1TAB14 PO; +fentaNYL 100 MCG/2 ML INJECTION As Ordered ONE; +propofoL 200 MG/20 ML VIAL As Ordered ONE
[2023-05-04] MEDS ORDERED: propofoL 200 MG/20 ML VIAL As Ordered ONE (10:25)
[2023-05-04 11:23] VITALS: BP 135/70; TEMP 97.7; O2SAT 99
== END 2023-05-04 11:23 | disposition home or self-care (01) ==
LOC: M OPP 08:02
PROVIDERS: ATTEND Internal Medicine Gastroenterology
DX: Z12.11 Encounter for screening for malignant neoplasm of colon (principal); K64.4 Residual hemorrhoidal skin tags; K64.8 Other hemorrhoids; K29.70 Gastritis, unspecified, without bleeding; B96.81 Helicobacter pylori [H. pylori] as the cause of diseases classified elsewhere; K22.89 Other specified disease of esophagus; Z79.899 Other long term (current) drug therapy; Z88.5 Allergy status to narcotic agent; Z88.6 Allergy status to analgesic agent; Z88.8 Allergy status to other drugs, medicaments and biological substances
CPT/HCPCS: 43239; 45378; 88305; J3010

== ENCOUNTER 2023-08-06 09:20 | Emergency (ER) | payer OTHER ==
[~2023-08-06] VITALS: Ht 149.9 cm; Wt 60.7 kg
[~2023-08-06 09:20] MED LIST changes: -NS 1,000 ML IV ONE; -fentaNYL 100 MCG/2 ML INJECTION As Ordered ONE; -propofoL 200 MG/20 ML VIAL As Ordered ONE
[2023-08-06] MEDS ORDERED: CLON1TAB8 (09:29)
[2023-08-06] MEDS ORDERED: ARIP10TA32 (09:29)
[2023-08-06] MEDS ORDERED: TRAZ1TAB14 (09:29)
[2023-08-06] MEDS ORDERED: ZENP1CAP64 (09:29)
[2023-08-06] MEDS ORDERED: escitalopram (09:29)
[2023-08-06 11:22] VITALS: BP 103/62; TEMP 97.6; O2SAT 96
[2023-08-06] MEDS ORDERED: LIDOCAINE 2% MDV 20ML VIAL INFIL ONE (11:35)
[2023-08-06] MEDS ORDERED: CEPH500C PO (12:27)
== END 2023-08-06 12:36 | disposition home or self-care (01) ==
LOC: M ED 09:20
DX: N90.7 Vulvar cyst (principal); F41.9 Anxiety disorder, unspecified; E03.9 Hypothyroidism, unspecified; F17.200 Nicotine dependence, unspecified, uncomplicated; Z87.42 Personal history of other diseases of the female genital tract; Z88.6 Allergy status to analgesic agent; Z88.5 Allergy status to narcotic agent; Z88.8 Allergy status to other drugs, medicaments and biological substances; Z79.899 Other long term (current) drug therapy; Z79.83 Long term (current) use of bisphosphonates

== ENCOUNTER → 2023-08-29 | Outpatient (REF) | payer OTHER ==
[~2023-08-29] MED LIST changes: +ARIP10TA32; +CEPH500C PO; +CLON1TAB8; +TRAZ1TAB14; +ZENP1CAP64; +escitalopram
[2023-08-29 12:19] LABS: BASO # 0.1 10^3/uL (0.0-0.2); BASO % 1.3 % (0.0-1.0); EOS # 0.2 10^3/uL (0.0-0.5); EOS % 2.5 % (0.0-3.0); HEMATOCRIT 45.1 % (36.0-47.0); HEMOGLOBIN 15.2 g/dl (12.0-15.5); LYMPH # 2.6 10^3/uL (1.5-5.0); LYMPH % 41.5 % (24.0-44.0); MEAN CORPUSCULAR HEMOGLOBIN 31.1 pg (27.0-33.0); MEAN CORPUSCULAR HGB CONC 33.7 g/dl (32.0-36.5); MEAN CORPUSCULAR VOLUME 92.4 fl (80.0-96.0); MONO # 0.4 10^3/uL (0.0-0.8); MONO % 6.6 % (2.0-8.0); NEUTROPHILS % 47.8 % (36.0-66.0); PLATELET COUNT, AUTOMATED 210 10^3/uL (150-450); RED BLOOD COUNT 4.88 10^6/uL (4.00-5.40); WHITE BLOOD COUNT 6.3 10^3/uL (4.0-10.0)
[2023-08-29 12:51] LABS: ALKALINE PHOSPHATASE 59 U/L (46-116); ALT/SGPT 31 U/L (7.0-40); AST/SGOT 36 U/L (<34); BILIRUBIN,TOTAL 0.4 MG/DL (0.3-1.2); BLOOD UREA NITROGEN 16 MG/DL (9-23); CALCIUM LEVEL 9.6 MG/DL (8.5-10.1); CARBON DIOXIDE LEVEL 31 MMOL/L (20-31); CHLORIDE LEVEL 107 MMOL/L (98-107); CREATININE FOR GFR 0.84 MG/DL (0.55-1.30); GLOMERULAR FILTRATION RATE > 60.0 (>51); GLUCOSE, FASTING 87 MG/DL (60-100); POTASSIUM SERUM 4.7 MMOL/L (3.5-5.1); SODIUM LEVEL 147 MMOL/L (136-145)
[2023-08-29 12:52] LABS: THYROID STIMULATING HORMONE 4.301 uIU/ML (0.55-4.78)
== END ==
LOC: M LAB REF 11:34
PROVIDERS: ATTEND Pediatrics
DX: E03.9 Hypothyroidism, unspecified (principal); E66.9 Obesity, unspecified

== ENCOUNTER → 2024-01-16 | Outpatient (REF) | payer OTHER ==
[~2024-01-16] MED LIST changes: -KLON1TAB PO; +KLON1TAB13 PO
[2024-01-16 18:09] LABS: BASO # 0.1 10^3/uL (0.0-0.2); EOS # 0.1 10^3/uL (0.0-0.5); HEMATOCRIT 45.8 % (36.0-47.0); HEMOGLOBIN 15.4 g/dl (12.0-15.5); LYMPH # 3.4 10^3/uL (1.5-5.0); MEAN CORPUSCULAR HEMOGLOBIN 31.5 pg (27.0-33.0); MEAN CORPUSCULAR HGB CONC 33.6 g/dl (32.0-36.5); MEAN CORPUSCULAR VOLUME 93.7 fl (80.0-96.0); MONO # 0.5 10^3/uL (0.0-0.8); MONO % 4.4 % (2.0-8.0); NEUTROPHILS # 6.9 10^3/uL (1.5-8.5); NEUTROPHILS % 62.2 % (36.0-66.0); PLATELET COUNT, AUTOMATED 212 10^3/uL (150-450); RED BLOOD COUNT 4.89 10^6/uL (4.00-5.40); WHITE BLOOD COUNT 11.1 10^3/uL (4.0-10.0)
[2024-01-16 18:35] LABS: ALKALINE PHOSPHATASE 73 U/L (46-116); ALT/SGPT 28 U/L (7.0-40); AST/SGOT 21 U/L (<34); BILIRUBIN,TOTAL 0.3 MG/DL (0.3-1.2); BLOOD UREA NITROGEN 16 MG/DL (9-23); CALCIUM LEVEL 9.7 MG/DL (8.3-10.6); CARBON DIOXIDE LEVEL 30 MMOL/L (20-31); CHLORIDE LEVEL 107 MMOL/L (98-107); CHOLESTEROL LEVEL 211 MG/DL (<200); CHOLESTEROL RISK RATIO 3.54 (<5); CREATININE FOR GFR 0.89 MG/DL (0.55-1.30); GLOMERULAR FILTRATION RATE > 60.0 (>45); GLUCOSE, FASTING 84 MG/DL (74-106); HDL CHOLESTEROL 59.6 MG/DL (>40); LDL CHOLESTEROL 121.8 MG/DL (<100); NON-HDL-C 151.4 MG/DL; POTASSIUM SERUM 4.8 MMOL/L (3.5-5.1); SODIUM LEVEL 143 MMOL/L (136-145); TOTAL PROTEIN 7.3 G/DL (5.7-8.2); TRIGLYCERIDES LEVEL 148 MG/DL (<150)
[2024-01-16 18:38] LABS: THYROID STIMULATING HORMONE 2.473 uIU/ML (0.55-4.78)
== END ==
LOC: M LAB REF 16:48
PROVIDERS: ATTEND Pediatrics
DX: E03.9 Hypothyroidism, unspecified (principal); Z76.89 Persons encountering health services in other specified circumstances

== ENCOUNTER 2024-01-19 10:19 | Inpatient (IN) | payer MEDICAID, OTHER ==
[~2024-01-19] VITALS: Ht 149.9 cm; Wt 60.5 kg
[~2024-01-19 10:19] MED LIST changes: -ARIP10TA32; +ARIP10TA32 PO; -CLON1TAB8; +CLON1TAB8 PO; -TRAZ1TAB14; -ZENP1CAP64; +ZENP1CAP64 PO
[2024-01-19 11:06] LABS: HEMATOCRIT 41.7 % (36.0-47.0); HEMOGLOBIN 13.8 g/dl (12.0-15.5); MEAN CORPUSCULAR HEMOGLOBIN 30.4 pg (27.0-33.0); MEAN CORPUSCULAR HGB CONC 33.1 g/dl (32.0-36.5); MEAN CORPUSCULAR VOLUME 91.9 fl (80.0-96.0); PLATELET COUNT, AUTOMATED 191 10^3/uL (150-450); RED BLOOD COUNT 4.54 10^6/uL (4.00-5.40); WHITE BLOOD COUNT 10.8 10^3/uL (4.0-10.0)
[2024-01-19 11:22] LABS: AMPHETAMINES LEVEL URINE NEGATIVE (NEGATIVE); BARBITURATES URINE NEGATIVE (NEGATIVE); BENZODIAZEPINES URINE NEGATIVE (NEGATIVE); COCAINE METABOLITE URINE NEGATIVE (NEGATIVE); METHADONE URINE NEGATIVE (NEGATIVE); OPIATES URINE NEGATIVE (NEGATIVE); PHENCYCLIDINE URINE NEGATIVE (NEGATIVE)
[2024-01-19 11:26] LABS: SALICYLATE LEVEL < 3.0 MG/DL (<30)
[2024-01-19 11:52] LABS: CANNABINOIDS URINE POSITIVE (NEGATIVE)
[2024-01-19 12:29] LABS: ALBUMIN 3.9 G/DL (3.2-5.2); ALKALINE PHOSPHATASE 73 U/L (46-116); ALT/SGPT 21 U/L (7.0-40); AST/SGOT 22 U/L (<34); BILIRUBIN,DIRECT < 0.1 MG/DL (<0.4); BILIRUBIN,TOTAL 0.3 MG/DL (0.3-1.2); BLOOD UREA NITROGEN 19 MG/DL (9-23); CALCIUM LEVEL 9.5 MG/DL (8.3-10.6); CARBON DIOXIDE LEVEL 30 MMOL/L (20-31); CHLORIDE LEVEL 107 MMOL/L (98-107); CREATININE FOR GFR 0.86 MG/DL (0.55-1.30); ETHYL ALCOHOL (ETHANOL) 0.004 % (0.000-0.010); GLOMERULAR FILTRATION RATE > 60.0 (>45); GLUCOSE, FASTING 82 MG/DL (74-106); POTASSIUM SERUM 3.8 MMOL/L (3.5-5.1); SODIUM LEVEL 139 MMOL/L (136-145); THYROID STIMULATING HORMONE 1.469 uIU/ML (0.55-4.78); TOTAL PROTEIN 6.7 G/DL (5.7-8.2)
[2024-01-19] MEDS: NICOTINE 21MG/24HR 1 EA TRANSDERMAL TD ONE (13:20)
[2024-01-19] MEDS ORDERED: LEVO88TA3 PO (13:35)
[2024-01-19] MEDS ORDERED: ESOM0.1C PO (13:36)
[2024-01-19] MEDS ORDERED: MOM 30ML SUSPENSION UDC PO PRN (13:40)
[2024-01-19] MEDS ORDERED: traZODone 50 MG TAB PO PRN (13:40)
[2024-01-19] MEDS ORDERED: ACETAMINOPHEN TAB 650MG DOSE (2X325MG) PO PRN (13:40)
[2024-01-19] MEDS ORDERED: HOME MED LIST COMPLETE! XX SCH (13:40)
[2024-01-19] MEDS ORDERED: MAALOX 30 ML SUSP *UDC PO PRN (13:40)
[2024-01-19 16:27] VITALS: BP 107/62; TEMP 97.6; O2SAT 96
[2024-01-19] MEDS: clonazePAM 1 MG TAB PO PRN (21:26)
[2024-01-19] MEDS: IBUPROFEN 400MG TAB PO PRN (21:26)
[2024-01-19] MEDS: traZODone 50 MG TAB PO SCH (21:27)
[2024-01-19] MEDS: ESCITALOPRAM OXALATE 10 MG TAB (LEXAPRO) PO SCH (21:27)
[2024-01-20 06:10] VITALS: BP 135/66; TEMP 98.5; O2SAT 97
[2024-01-20] MEDS: LEVOTHYROXINE 88MCG TABLET (0.088 MG) PO SCH (06:27)
[2024-01-20] MEDS: ZENPEP 40000 UNIT PO SCH (07:52)
[2024-01-20] MEDS: ARIPiprazole 10 MG TAB PO SCH (07:53)
[2024-01-20 14:26] VITALS: BP 141/80; TEMP 97.4; O2SAT 98
[2024-01-20 14:45] VITALS: BP 141/80; TEMP 97.4; O2SAT 98
[2024-01-20] MEDS: ARIPiprazole 2 MG TAB PO SCH (14:48)
[2024-01-20] MEDS: NICOTINE 14 MG/24 HR TRANSDERMAL TD SCH (17:19)
[2024-01-21 06:23] VITALS: BP 135/71; TEMP 98.9; O2SAT 95
[2024-01-21] MEDS: PANTOPRAZOLE 40MG TAB (PROTONIX) PO SCH (08:07)
[2024-01-21 16:24] VITALS: BP 112/70; TEMP 98.3; O2SAT 97
[2024-01-21] MEDS: ZENPEP 40000 UNIT PO PRN (20:04)
[2024-01-22 06:14] VITALS: BP 128/72; TEMP 97; O2SAT 96
[2024-01-22 17:23] VITALS: BP 138/78; TEMP 97.8; O2SAT 98
[2024-01-23 06:10] VITALS: BP 136/81; TEMP 97.2; O2SAT 97
[2024-01-23 08:57] LABS: CHOLESTEROL RISK RATIO 3.33 (<5); HDL CHOLESTEROL 57.8 MG/DL (>40); LDL CHOLESTEROL 110.6 MG/DL (<100); NON-HDL-C 135.2 MG/DL
[2024-01-23 17:07] VITALS: BP 113/66; TEMP 97.7; O2SAT 95
[2024-01-24 06:56] VITALS: BP 125/63; TEMP 97.8; O2SAT 95
[2024-01-24] MEDS ORDERED: ARIP10TA32 PO (08:08)
[2024-01-24] MEDS ORDERED: ABIL1TAB13 PO (08:08)
[2024-01-24] MEDS ORDERED: NICO14PA TD (08:08)
== END 2024-01-24 11:08 | disposition home or self-care (01) | DRG 751 ==
LOC: M ED 10:19 → M ED INP 13:38 → M PSY 16:25
PROVIDERS: ADMIT Student in an Organized Health Care Education/Training Program; ATTEND Student in an Organized Health Care Education/Training Program
DX: F33.3 Major depressive disorder, recurrent, severe with psychotic symptoms (principal); E55.9 Vitamin D deficiency, unspecified; Z88.6 Allergy status to analgesic agent; Z88.8 Allergy status to other drugs, medicaments and biological substances; Z88.5 Allergy status to narcotic agent; Z79.899 Other long term (current) drug therapy; H40.9 Unspecified glaucoma; G89.29 Other chronic pain; F41.9 Anxiety disorder, unspecified; E03.9 Hypothyroidism, unspecified; K21.9 Gastro-esophageal reflux disease without esophagitis; G43.909 Migraine, unspecified, not intractable, without status migrainosus; F17.200 Nicotine dependence, unspecified, uncomplicated; K64.8 Other hemorrhoids; F43.10 Post-traumatic stress disorder, unspecified; K29.70 Gastritis, unspecified, without bleeding

== ENCOUNTER → 2024-01-30 | Outpatient (REF) | payer MEDICAID ==
[~2024-01-30] MED LIST changes: +ABIL1TAB13 PO; +ESOM0.1C PO; +LEVO88TA3 PO; +NICO14PA TD
== END ==
LOC: M LAB REF 11:32
PROVIDERS: ATTEND Internal Medicine Gastroenterology
DX: K86.81 Exocrine pancreatic insufficiency (principal); B96.81 Helicobacter pylori [H. pylori] as the cause of diseases classified elsewhere; R10.13 Epigastric pain; K76.0 Fatty (change of) liver, not elsewhere classified; R14.0 Abdominal distension (gaseous)

== ENCOUNTER → 2024-06-05 | Outpatient (REF) | payer OTHER ==
[~2024-06-05] MED LIST changes: -ESOM0.1C PO; +ESOM20CA2 PO
[2024-06-05 19:17] LABS: BASO # 0.1 10^3/uL (0.0-0.2); BASO % 0.8 % (0.0-1.0); EOS # 0.2 10^3/uL (0.0-0.5); EOS % 1.6 % (0.0-3.0); HEMATOCRIT 44.9 % (36.0-47.0); LYMPH # 3.5 10^3/uL (1.5-5.0); LYMPH % 36.5 % (24.0-44.0); MEAN CORPUSCULAR HEMOGLOBIN 31.1 pg (27.0-33.0); MEAN CORPUSCULAR HGB CONC 33.4 g/dl (32.0-36.5); MONO # 0.5 10^3/uL (0.0-0.8); MONO % 5.7 % (2.0-8.0); NEUTROPHILS # 5.2 10^3/uL (1.5-8.5); NEUTROPHILS % 55.1 % (36.0-66.0); PLATELET COUNT, AUTOMATED 244 10^3/uL (150-450); RED BLOOD COUNT 4.83 10^6/uL (4.00-5.40); WHITE BLOOD COUNT 9.5 10^3/uL (4.0-10.0)
[2024-06-05 19:46] LABS: FOLATE 14.6 NG/ML (>5.4)
[2024-06-11 15:08] LABS: HEMOGLOBINOPATHY EVAL HCT 47.1 % (35.0-45.0); HEMOGLOBINOPATHY EVAL HGB 15.3 g/dL (11.7-15.5); HEMOGLOBINOPATHY EVAL HGB A 57.5 % (>96.0); HEMOGLOBINOPATHY EVAL HGB A2 2.7 % (2.0-3.2); HEMOGLOBINOPATHY EVAL HGB S 39.8 % (0.0); HEMOGLOBINOPATHY EVAL MCH 31.4 pg (27.0-33.0); HEMOGLOBINOPATHY EVAL MCV 96.5 fL (80.0-100.0); HEMOGLOBINOPATHY EVAL RBC 4.88 Mill/uL (3.80-5.10)
== END ==
LOC: M LAB REF 16:40
PROVIDERS: ATTEND Pediatrics
DX: Z83.2 Family history of diseases of the blood and blood-forming organs and certain disorders involving the immune mechanism (principal); K30 Functional dyspepsia

== ENCOUNTER → 2024-06-11 | Outpatient (CLI) | payer OTHER | LOC: M RAD 09:29 | PROVIDERS: ATTEND Pediatrics | DX: Z12.2 Encounter for screening for malignant neoplasm of respiratory organs (principal); F17.210 Nicotine dependence, cigarettes, uncomplicated ==

== ENCOUNTER → 2024-06-19 | Outpatient (REF) | payer OTHER | LOC: M LAB REF 10:43 | PROVIDERS: ATTEND Pediatrics | DX: K30 Functional dyspepsia (principal) ==

== ENCOUNTER 2024-06-21 08:25 | Emergency (ER) | payer OTHER ==
[~2024-06-21] VITALS: Ht 149.9 cm; Wt 62.7 kg
[2024-06-21 11:35] VITALS: BP 116/66; TEMP 96.4; O2SAT 96
== END 2024-06-21 11:50 | disposition home or self-care (01) ==
LOC: M ED 08:25
DX: R04.0 Epistaxis (principal); E03.9 Hypothyroidism, unspecified; F32.A Depression, unspecified; F41.9 Anxiety disorder, unspecified; Z88.5 Allergy status to narcotic agent; Z88.6 Allergy status to analgesic agent; Z88.8 Allergy status to other drugs, medicaments and biological substances; Z79.899 Other long term (current) drug therapy

== ENCOUNTER → 2024-07-02 | Outpatient (REF) | payer OTHER ==
[~2024-07-02] MED LIST changes: -ARIP10TA32 PO; +ARIP10TA63 PO
[2024-07-02 18:13] LABS: BASO % 0.4 % (0.0-1.0); EOS # 0.1 10^3/uL (0.0-0.5); EOS % 0.7 % (0.0-3.0); HEMATOCRIT 40.5 % (36.0-47.0); HEMOGLOBIN 13.4 g/dl (12.0-15.5); LYMPH # 2.8 10^3/uL (1.5-5.0); MEAN CORPUSCULAR HEMOGLOBIN 30.6 pg (27.0-33.0); MEAN CORPUSCULAR HGB CONC 33.1 g/dl (32.0-36.5); MEAN CORPUSCULAR VOLUME 92.5 fl (80.0-96.0); MONO # 0.5 10^3/uL (0.0-0.8); MONO % 4.9 % (2.0-8.0); NEUTROPHILS # 6.5 10^3/uL (1.5-8.5); NEUTROPHILS % 65.7 % (36.0-66.0); PLATELET COUNT, AUTOMATED 238 10^3/uL (150-450); RED BLOOD COUNT 4.38 10^6/uL (4.00-5.40); WHITE BLOOD COUNT 9.9 10^3/uL (4.0-10.0)
[2024-07-02 18:46] LABS: ALBUMIN 3.9 G/DL (3.2-5.2); ALKALINE PHOSPHATASE 66 U/L (46-116); ALT/SGPT 30 U/L (7.0-40); AST/SGOT 20 U/L (<34); BILIRUBIN,TOTAL 0.4 MG/DL (0.3-1.2); BLOOD UREA NITROGEN 12 MG/DL (9-23); CALCIUM LEVEL 9.4 MG/DL (8.3-10.6); CARBON DIOXIDE LEVEL 30 MMOL/L (20-31); CHLORIDE LEVEL 108 MMOL/L (98-107); CREATININE FOR GFR 0.84 MG/DL (0.55-1.30); GLOMERULAR FILTRATION RATE > 60.0 (>45); GLUCOSE, FASTING 77 MG/DL (74-106); POTASSIUM SERUM 4.3 MMOL/L (3.5-5.1); SODIUM LEVEL 141 MMOL/L (136-145); TOTAL PROTEIN 6.8 G/DL (5.7-8.2)
[2024-07-02 18:48] LABS: THYROID STIMULATING HORMONE 0.546 uIU/ML (0.55-4.78)
[2024-07-02 19:30] LABS: HEMOGLOBIN A1c 5.2 % (4.0-6.0)
== END ==
LOC: M LAB REF 17:45
PROVIDERS: ATTEND Pediatrics
DX: E03.9 Hypothyroidism, unspecified (principal); Z76.89 Persons encountering health services in other specified circumstances

== ENCOUNTER → 2024-08-12 | Outpatient (CLI) | payer OTHER ==
[2024-08-12 10:49] LABS: APPEARANCE, URINE HAZY (CLEAR); BACTERIA, URINE AUTO NEGATIVE (NEGATIVE); BILIRUBIN, URINE AUTO NEGATIVE (NEGATIVE); BLOOD, URINE BLOOD NEGATIVE (NEGATIVE); COLOR, URINE YELLOW (YELLOW); GLUCOSE, URINE (UA) AUTO NEGATIVE (NEGATIVE); KETONE, URINE AUTO NEGATIVE (NEGATIVE); LEUKOCYTE ESTERASE, URINE AUTO 1+ (NEGATIVE); NITRITE, URINE AUTO NEGATIVE (NEGATIVE); PROTEIN, URINE AUTO NEGATIVE (NEGATIVE); RBC, URINE AUTO 2 /HPF (0-3); SPECIFIC GRAVITY URINE AUTO 1.014 (1.002-1.035); SQUAMOUS EPITHELIAL CELL UR AU 2 /HPF (0-6); UROBILINOGEN, URINE AUTO 0.2 mg/dL (0.0-2.0); WBC, URINE AUTO 1 /HPF (0-3)
[2024-08-12 11:17] LABS: CREATININE, URINE 102.9 MG/DL
[2024-08-12 11:18] LABS: MAU/CREAT RATIO 74.8 MCG/MG (0.0-30.0)
== END ==
LOC: M PLALAB 08:14
PROVIDERS: ATTEND Internal Medicine Hematology
DX: D57.3 Sickle-cell trait (principal)

== ENCOUNTER 2024-09-05 11:27 | Inpatient (IN) | payer MEDICARE, OTHER ==
[~2024-09-05] VITALS: Ht 144.8 cm; Wt 53.2 kg
[2024-09-05 12:35] LABS: HEMATOCRIT 40.2 % (36.0-47.0); HEMOGLOBIN 13.3 g/dl (12.0-15.5); MEAN CORPUSCULAR HEMOGLOBIN 29.2 pg (27.0-33.0); MEAN CORPUSCULAR HGB CONC 33.1 g/dl (32.0-36.5); MEAN CORPUSCULAR VOLUME 88.4 fl (80.0-96.0); PLATELET COUNT, AUTOMATED 204 10^3/uL (150-450); RED BLOOD COUNT 4.55 10^6/uL (4.00-5.40); WHITE BLOOD COUNT 8.4 10^3/uL (4.0-10.0)
[2024-09-05 12:59] LABS: AMPHETAMINES LEVEL URINE NEGATIVE (NEGATIVE); BARBITURATES URINE NEGATIVE (NEGATIVE); BENZODIAZEPINES URINE NEGATIVE (NEGATIVE); CANNABINOIDS URINE NEGATIVE (NEGATIVE); COCAINE METABOLITE URINE NEGATIVE (NEGATIVE); METHADONE URINE NEGATIVE (NEGATIVE); OPIATES URINE NEGATIVE (NEGATIVE); PHENCYCLIDINE URINE NEGATIVE (NEGATIVE)
[2024-09-05 13:02] LABS: ETHYL ALCOHOL (ETHANOL) < 0.003 % (0.000-0.010)
[2024-09-05 13:03] LABS: SALICYLATE LEVEL < 3.0 MG/DL (<30)
[2024-09-05 13:13] LABS: ALKALINE PHOSPHATASE 68 U/L (35-104); ALT/SGPT 28 U/L (7.0-40); AST/SGOT 28 U/L (<34); BILIRUBIN,DIRECT 0.2 MG/DL (<0.4); BILIRUBIN,TOTAL 0.6 MG/DL (0.3-1.2); BLOOD UREA NITROGEN 13 MG/DL (9-23); CALCIUM LEVEL 10.6 MG/DL (8.3-10.6); CARBON DIOXIDE LEVEL 33 MMOL/L (20-31); CHLORIDE LEVEL 104 MMOL/L (98-107); CREATININE FOR GFR 0.75 MG/DL (0.55-1.30); GLOMERULAR FILTRATION RATE > 60.0 (>45); GLUCOSE, FASTING 112 MG/DL (74-106); POTASSIUM SERUM 3.2 MMOL/L (3.5-5.1); SODIUM LEVEL 145 MMOL/L (136-145); THYROID STIMULATING HORMONE 2.192 uIU/ML (0.55-4.78); TOTAL PROTEIN 7.3 G/DL (5.7-8.2)
[2024-09-05] MEDS ORDERED: traZODone 50 MG TAB PO PRN (13:55)
[2024-09-05] MEDS ORDERED: MOM 30ML SUSPENSION UDC PO PRN (13:55)
[2024-09-05] MEDS ORDERED: SYNT75TA PO (14:02)
[2024-09-05] MEDS ORDERED: ALPR1TAB3 PO (14:06)
[2024-09-05] MEDS ORDERED: ARIP1TAB4 PO (14:06)
[2024-09-05] MEDS ORDERED: VITA500045 PO (14:07)
[2024-09-05] MEDS ORDERED: FAMO20TA PO (14:07)
[2024-09-05] MEDS ORDERED: HOME MED LIST COMPLETE! XX SCH (14:10)
[2024-09-05] MEDS: POTASSIUM CHLORIDE 10MEQ SR TABLET PO ONE (14:26)
[2024-09-05 15:52] VITALS: BP 138/67; TEMP 97.3; O2SAT 98
[2024-09-05] MEDS: NICOTINE 14 MG/24 HR TRANSDERMAL TD SCH (16:52)
[2024-09-05] MEDS: ALPRAZolam 0.5 MG TAB PO PRN (17:56)
[2024-09-05] MEDS: ESCITALOPRAM OXALATE 10 MG TAB (LEXAPRO) PO SCH (20:13)
[2024-09-05] MEDS: traZODone 50 MG TAB PO SCH (20:13)
[2024-09-06] MEDS: LEVOTHYROXINE 75MCG TABLET (0.075MG) PO SCH (05:59)
[2024-09-06 06:29] VITALS: BP 142/72; TEMP 98.4; O2SAT 97
[2024-09-06] MEDS: FAMOTIDINE 20 MG TAB PO SCH (08:58)
[2024-09-06] MEDS: ARIPiprazole 10 MG TAB PO SCH (09:02)
[2024-09-06] MEDS: ARIPiprazole 2 MG TAB PO SCH (09:02)
[2024-09-06 14:00] VITALS: BP 142/72; TEMP 98.4; O2SAT 97
[2024-09-06 15:28] VITALS: BP 138/67; TEMP 97.9; O2SAT 100
[2024-09-07 06:30] VITALS: BP 138/74; TEMP 98.1; O2SAT 98
[2024-09-07] MEDS: ACETAMINOPHEN 325 MG TAB PO PRN (08:21)
[2024-09-07 08:30] VITALS: BP 138/74; TEMP 98.1; O2SAT 98
[2024-09-07 15:10] VITALS: BP 114/71; TEMP 97.7; O2SAT 96
[2024-09-07] MEDS: MAALOX 30 ML SUSP *UDC PO PRN (22:39)
[2024-09-08 06:21] VITALS: BP 122/77; TEMP 98.1; O2SAT 96
[2024-09-08 14:58] VITALS: BP 117/73; TEMP 97.9; O2SAT 98
[2024-09-09 06:29] VITALS: BP 129/67; TEMP 98.6; O2SAT 96
[2024-09-09 15:43] VITALS: BP 124/63; TEMP 97.3; O2SAT 97
[2024-09-10 06:27] VITALS: BP 136/87; TEMP 96.9; O2SAT 96
== END 2024-09-10 11:33 | disposition home or self-care (01) | DRG 885 ==
LOC: M ED 11:27 → M ED INP 13:53 → M PSY 15:23
PROVIDERS: ADMIT Psychiatry & Neurology Psychiatry; ATTEND Psychiatry & Neurology Psychiatry
DX: F32.3 Major depressive disorder, single episode, severe with psychotic features (principal); R45.851 Suicidal ideations; Z88.6 Allergy status to analgesic agent; Z88.5 Allergy status to narcotic agent; Z88.8 Allergy status to other drugs, medicaments and biological substances; Z79.899 Other long term (current) drug therapy; K21.9 Gastro-esophageal reflux disease without esophagitis; E03.9 Hypothyroidism, unspecified; H40.9 Unspecified glaucoma; F17.200 Nicotine dependence, unspecified, uncomplicated; F43.10 Post-traumatic stress disorder, unspecified; K64.8 Other hemorrhoids; G89.29 Other chronic pain; G43.909 Migraine, unspecified, not intractable, without status migrainosus; F41.9 Anxiety disorder, unspecified; E55.9 Vitamin D deficiency, unspecified

== ENCOUNTER → 2024-11-04 | Outpatient (CLI) | payer OTHER ==
[~2024-11-04] MED LIST changes: +ALPR1TAB3 PO; +ARIP1TAB4 PO; +FAMO20TA PO; +SYNT75TA PO; +VITA500045 PO
[2024-11-04 11:37] LABS: BASO # 0.1 10^3/uL (0.0-0.2); EOS # 0.1 10^3/uL (0.0-0.5); EOS % 1.5 % (0.0-3.0); HEMATOCRIT 40.6 % (36.0-47.0); HEMOGLOBIN 13.5 g/dl (12.0-15.5); LYMPH # 2.7 10^3/uL (1.5-5.0); LYMPH % 34.5 % (24.0-44.0); MEAN CORPUSCULAR HEMOGLOBIN 29.1 pg (27.0-33.0); MEAN CORPUSCULAR HGB CONC 33.3 g/dl (32.0-36.5); MEAN CORPUSCULAR VOLUME 87.5 fl (80.0-96.0); MONO # 0.4 10^3/uL (0.0-0.8); MONO % 5.5 % (2.0-8.0); NEUTROPHILS # 4.5 10^3/uL (1.5-8.5); NEUTROPHILS % 57.2 % (36.0-66.0); PLATELET COUNT, AUTOMATED 225 10^3/uL (150-450); RED BLOOD COUNT 4.64 10^6/uL (4.00-5.40); WHITE BLOOD COUNT 7.8 10^3/uL (4.0-10.0)
[2024-11-04 12:02] LABS: HEMOGLOBIN A1c 5.3 % (4.0-6.0)
[2024-11-04 12:12] LABS: ALBUMIN 3.8 G/DL (3.2-5.2); ALKALINE PHOSPHATASE 55 U/L (35-104); ALT/SGPT 15 U/L (7.0-40); AST/SGOT 14 U/L (<34); BILIRUBIN,TOTAL 0.5 MG/DL (0.3-1.2); BLOOD UREA NITROGEN 21 MG/DL (9-23); CALCIUM LEVEL 9.5 MG/DL (8.3-10.6); CARBON DIOXIDE LEVEL 33 MMOL/L (20-31); CHLORIDE LEVEL 107 MMOL/L (98-107); CREATININE FOR GFR 0.81 MG/DL (0.55-1.30); GLOMERULAR FILTRATION RATE > 60.0 (>45); GLUCOSE, FASTING 77 MG/DL (74-106); POTASSIUM SERUM 4.1 MMOL/L (3.5-5.1); SODIUM LEVEL 145 MMOL/L (136-145); TOTAL PROTEIN 6.9 G/DL (5.7-8.2)
== END ==
LOC: M LAB 09:03
PROVIDERS: ATTEND Pediatrics
DX: E03.9 Hypothyroidism, unspecified (principal); Z76.89 Persons encountering health services in other specified circumstances

== ENCOUNTER → 2024-11-20 | Outpatient (REF) | payer OTHER | LOC: M LAB REF 13:14 | PROVIDERS: ATTEND Pediatrics | DX: E03.9 Hypothyroidism, unspecified (principal) ==